=== PATIENT | female | born 1940 | race Caucasian/White ===

== ENCOUNTER 2017-10-07 19:31 | Emergency (ER) | payer OTHER, MEDICARE ==
[~2017-10-07] VITALS: Ht 149.9 cm; Wt 96.7 kg
[~2017-10-07 19:31] MED LIST: AMLODIPINE BESYL5 MG PO; CALCITRIOL0.25 MCG PO; COLACE100 MG PO; DOXAZOSIN MESYLA4 MG PO; ECOTRIN325 MG PO; FENOFIBRATE160 M1 PO; FUROSEMIDE40 MG PO; GLUCOPHAGE1000 MG PO; GLUCOTROL XL10 MG PO; INCRUSE ELLI62.5 MCG IH; LISINOPRIL-HCT1 EAC3 PO; LISINOPRIL20 MG PO; LOSARTAN POTASS50 MG PO; MELOXICAM15 MG PO; METOPROLOL TART50 MG PO; MIACALCIN200 INTUNI NS; NORTRIPTYLINE H10 MG PO; NOVOLOG MI100 UNIT/2 SC; NOVOLOG MI100 UNIT/2 SQ; NOVOLOG MI100 UNIT/M PO; NOVOLOG MI100 UNIT/M SC; NYSTATIN15 GM TP; PRAVACHOL80 MG PO; TYLENOL EXTRA500 MG PO; TYLENOL REGULA325 MG PO; ULTRAM50 MG PO; VICODIN,LORT1 TABLET PO; VICTOZA INJECTION; VITAMIN D31000 UNI2 PO; ZOFRAN4 MG PO
[2017-10-07 20:54] LABS: HEMATOCRIT 33.3 % (36.0-46.0); HEMOGLOBIN 10.9 G/DL (11.9-15.5); MCHC 32.7 G/DL (30.0-36.0); MCV 97.7 FL (83-99); PLATELET COUNT 198 K/uL (156-360); RBC DIS.WIDTH-CV 12.8 % (11.8-14.6); RBC DIS.WIDTH-SD 46.3 % (39-53); RED BLOOD COUNT 3.41 M/uL (3.80-5.20); WHITE BLOOD COUNT 8.2 K/uL (4.1-10.2)
[2017-10-07 21:06] LABS: CHLORIDE 104 mEq/L (99-109); POTASSIUM 4.1 mEq/L (3.7-5.4); SODIUM 138 mEq/L (136-147)
[2017-10-07 21:08] LABS: GLUCOSE 181 mg/dL (70-99)
[2017-10-07 21:12] LABS: CREATININE 2.4 mg/dL (0.6-1.3); GFR ESTIMATE (CALCULATED) 21 mL/min/
[2017-10-07 21:13] LABS: UREA NITROGEN (BUN) 86 mg/dL (9-23)
[2017-10-07 22:14] LABS: TROP-I INTERPRETATION NEGATIVE; TROPONIN-I 0.01 ng/mL (0.0-0.30)
[2017-10-07] MEDS ORDERED: ZITHROMAX Z-PA250 MG PO (23:19)
[2017-10-07] MEDS ORDERED: PREDNISONE10 M1 PO (23:19)
[2017-10-07 23:30] VITALS: BP 166/74
== END 2017-10-07 23:32 | disposition home or self-care (01) ==
LOC: EME 19:31 → RME 19:31
DX: J44.1 Chronic obstructive pulmonary disease with (acute) exacerbation (principal); I12.9 Hypertensive chronic kidney disease with stage 1 through stage 4 chronic kidney disease, or unspecified chronic kidney disease; E11.22 Type 2 diabetes mellitus with diabetic chronic kidney disease; N18.9 Chronic kidney disease, unspecified; Z79.4 Long term (current) use of insulin; Z87.891 Personal history of nicotine dependence; E78.5 Hyperlipidemia, unspecified; Z88.1 Allergy status to other antibiotic agents; Z88.5 Allergy status to narcotic agent; Z88.0 Allergy status to penicillin
CPT/HCPCS: 71020; 80048; 84484; 85027; 93005; 94640; 99281; 99284